=== PATIENT | female | born 1995 | race Caucasian/White ===

== ENCOUNTER 2023-01-11 21:27 | Emergency (ER) | payer BC, SELFPAY ==
[2023-01-11 21:28] VITALS: BP 116/90; PULSE 81; RESP 18; TEMP 36.7; O2SAT 99; BMI 35.4
--- NOTE | 2023-01-11 21:45 | XR_ITS ---
PROCEDURE INFORMATION: Exam: XR Left Ankle Exam date and time: 01/11/23 09:40 PM Age: 27 years old Clinical indication: Pain; Ankle; Left; Additional info: Blunt trauma lateral ankle TECHNIQUE: Imaging protocol: Radiologic exam of the left ankle. Views: 3 or more views. COMPARISON: No relevant prior studies available. FINDINGS: Bones/joints: Normal. Soft tissues: Normal. IMPRESSION: No acute findings.
--- NOTE | 2023-01-11 21:45 | [facility].EDGENADL ---
Discharge Plan Disposition Chief Complaint: Extremity Injury, Lower Referrals Follow up/Referrals: Provider,Referral, MD [Primary Care Provider] - See instructions Activity Restrictions/Add. Instructions Additional Instructions/Restrictions: At this time is felt you are safe to be discharged home. If new or worsening symptoms please do not hesitate to return to the emergency department. Please follow-up with your family doctor in a week if symptoms persist. Please bear weight as tolerated on the affected ankle however alternate rest, ice, compression. Clinical Impressions Clinical Impression: Ankle sprain and strain Discharge ED Provider: Froilan Scales General Adult HPI General Chief complaint: Extremity Injury, Lower Stated complaint: AO 01/11 2100 Lt ankle injury Time Seen by Provider: 01/11/23 21:37 History of Present Illness HPI narrative: Patient is a 27-year-old female with no pertinent past medical history presents emergency department for evaluation of traumatic injury sustained to her left ankle. Patient was pulling a tractor tonight when the clutch broke resulting in significant axial force to her left ankle. Denies other traumatic injuries. No other acute complaints at this time. Related Data Allergies Allergy/AdvReac Type Severity Reaction Status Date / Time No Known Allergies Allergy Unverified 06/11/17 14:56 [facility] Disclaimer: The information contained in this section may have been updated after the patient was seen, as this information can be updated by other users. Social History Smoking Status: Never smoker alcohol intake: never current occupational status: employed Travel in the last 8 weeks: None ROS Obtained: Yes Systems reviewed as appropriate & no additional complaints except as documented Physical Exam General General appearance: alert and in no apparent distress Head Head exam: atraumatic and normocephalic Eye Eye exam: Present PERRL and EOMI ENT ENT exam: Present mucous membranes moist Neck Neck exam: Present normal inspection Chest Chest inspection: Present normal inspection and symmetric chest wall rise Respiratory Respiratory exam: Present normal lung sounds bilaterally; Absent respiratory distress Cardiovascular Cardiovascular exam: Present regular rate and normal rhythm Abdominal Exam Abdominal exam: Present soft; Absent tenderness Extremities Exam Extremities exam: Present normal inspection and other (Tenderness over the left lateral malleolus and posterior ankle. No tenderness over the medial malleolus. Palpable dorsal pedal pulse on the left. Able to range all toes on the left) Neurological Exam Neurological exam: Present alert and oriented X3 Psychiatric Psychiatric exam: Present normal affect Skin Skin exam: Present warm and dry Medical Decision Making [place] Inquiry Pt receiving controlled substance: No Vital Signs: 01/11/23 21:28 Temperature 98.1 F Temperature Source Oral Pulse Rate [Left] 81 Respiratory Rate 18 Blood Pressure [Right Arm] 116/90 Blood Pressure Mean [Right Arm] 98 02 Sat by Pulse Oximetry 99 Oxygen Delivery Method Room Air Orders (Tests/Meds): ED MEDICATIONS Discontinued Medications Generic Name Dose Route Start Last Admin Trade Name Freq PRN Reason Stop Dose Admin Acetaminophen 1,000 mg 01/11/23 21:45 01/11/23 22:05 Acetaminophen 500mg Tab PO 01/11/23 21:46 Not Given ONCE ONE Ibuprofen 600 mg 01/11/23 21:45 01/11/23 21:53 Ibuprofen 600 Mg Tablet PO 01/11/23 21:46 Not Given ONCE ONE ORDERS Category Date Time Status Ankle XR - Left minimum 3 Views [XR ankle LT min 3V] Exams 01/11/23 21:45 Completed Stat Medical Decision Narrative: In summary patient is a 27-year-old female with past medical history described above who presents emergency department for evaluation of traumatic ankle pain. Patient is hemodynamically stable upon arrival, no other traumatic
[2023-01-11 22:39] VITALS: BP 121/72; PULSE 77; RESP 16; TEMP 36.7; O2SAT 99
== END 2023-01-11 22:45 | disposition home or self-care (01) ==
PROVIDERS: Emergency Provider Emergency Medicine
DX: S93.402A Sprain of unspecified ligament of left ankle, initial encounter (principal); S96.912A Strain of unspecified muscle and tendon at ankle and foot level, left foot, initial encounter; X50.0XXA Overexertion from strenuous movement or load, initial encounter
CPT/HCPCS: 73610; 99283